=== PATIENT | male | born 1980 | race Two or more races ===

== ENCOUNTER 2021-12-04 05:42 | Emergency (ER) | payer OTHER ==
[~2021-12-04] VITALS: Ht 170.2 cm; Wt 79.0 kg
[2021-12-04] MEDS ORDERED: ONDANSETRON HCL 4 MG/2 ML VIAL IV ONE (07:15)
[2021-12-04] MEDS ORDERED: MORPHINE SULFATE 4 MG/ML SYR/VIAL IV ONE (07:15)
[2021-12-04 07:50] LABS: Eosinophils # (auto) 0.3 10 ^3/uL (0-0.8); Eosinophils % (auto) 4.5 % (0.0-7.0); Hemoglobin 16.8 g/dL (13.5-17.5); Monocytes # (auto) 0.5 10 ^3/uL (0-1.3); Nucleated Red Blood Cells % 0.2 %
[2021-12-04 07:53] LABS: Albumin 4.3 g/dL (3.4-5.0); Calcium 9.1 mg/dL (8.5-10.1); Potassium 4.6 mmol/L (3.5-5.1)
[2021-12-04 07:54] LABS: Basophils # (auto) 0 10 ^3/uL (0-0.2); Basophils % (auto) 0.7 % (0.0-2.0); Hematocrit 52.5 % (41.0-53.0); Lymphocytes % (auto) 14.3 % (10.0-50.0); Mean Corpuscular Hgb Conc. 31.9 g/dL (32.0-36.0); Mean Corpuscular Volume 84.6 fL (80.0-100.0); Monocytes % (auto) 6.7 % (0.0-12.0); Neutrophils # (auto) 5.2 10 ^3/uL (1.6-8.6); Neutrophils % (auto) 73.8 % (37.0-80.0); Red Blood Cells 6.21 10^6/uL (4.5-5.90); Red Cell Distribution Width 14.8 % (11.8-14.3)
[2021-12-04 07:56] LABS: BUN/Creatinine Ratio 11.6; Bilirubin, Total 0.6 mg/dL (0.2-1.0); Total Protein 9.7 g/dL (6.4-8.2)
[2021-12-04 08:18] LABS: INR 1.09 (0.9-1.15); Partial Thromboplastin Time 36.6 sec (24.6-33.4)
[2021-12-04 11:03] VITALS: BP 125/81
== END 2021-12-04 13:19 | disposition home or self-care (01) ==
LOC: ER 05:42 → EEVIPCON 05:42 → ER 13:19
DX: R10.84 Generalized abdominal pain (principal); Z43.3 Encounter for attention to colostomy; Z20.822 Contact with and (suspected) exposure to COVID-19
CPT/HCPCS: 36415; 74176; 80053; 83605; 83690; 84484; 85025; 85610; 85730; 87040; 87426; 96374; 96375; 99285; J2270; J2405